=== PATIENT | female | born 1965 | race Caucasian/White ===

== ENCOUNTER 2020-05-14 23:29 | Inpatient (IN) | payer BC ==
[~2020-05-14] VITALS: Ht 154.9 cm; Wt 100.8 kg
[2020-05-15] MEDS ORDERED: ACETAMINOPHEN 325 MG TABLET. PO ONE (00:30)
[2020-05-15] MEDS ORDERED: IV NORMAL SALINE 1000ML BAG 1,000 ML IV ONE ×2 (00:30→01:30)
[2020-05-15 01:01] LABS: CALCIUM 9.4 mg/dL (8.5-10.1); CREATININE 1.1 mg/dL (0.6-1.0); GFR 51.4; POTASSIUM 3.6 mmol/L (3.5-5.1)
[2020-05-15 01:02] LABS: BASO % 1 % (0-3); EOS % 0 % (0-3); HEMATOCRIT 47.4 % (36.0-47.0); HEMOGLOBIN 16.1 g/dL (12.0-15.5); LYMPH # 0.8 x10^3/uL (1.0-4.8); LYMPH % 11 % (24-48); MEAN CORPUSCULAR HEMOGLOBIN 29 pg (25-35); MEAN CORPUSCULAR HGB CONC 34 g/dL (31-37); MEAN CORPUSCULAR VOLUME 86 fL (79-100); MONO # 0.8 x10^3/uL (0.0-1.1); MONO % 11 % (0-9); NEUT # 5.8 x10^3/uL (1.8-7.7); NEUT % 78 % (31-73); PLATELET COUNT 218 x10^3/uL (140-400); RED CELL DISTRIBUTION WIDTH 13.6 % (11.5-14.5); WHITE BLOOD COUNT 7.5 x10^3/uL (4.0-11.0)
[2020-05-15 01:07] LABS: ALBUMIN 3.2 g/dL (3.4-5.0); ALBUMIN/GLOBULIN RATIO 0.6 (1.0-1.7); TOTAL BILIRUBIN 0.6 mg/dL (0.2-1.0); TOTAL PROTEIN 8.2 g/dL (6.4-8.2)
--- NOTE | 2020-05-15 01:27 | RAD ---
AP chest. HISTORY: Short of breath, Covid positive AP view was taken of the chest. Patient's taken a poor inspiration. There is no definite effusion. Heart is normal in size. There is mild crowding of the vasculature related to the poor inspiration. Minimal interstitial infiltrates are possible but the pattern may all be related to the degree of inspiration. A confluent pneumonia is not identified. IMPRESSION: 1. Mild prominence bronchovascular pattern probably related to the poor inspiration. 2. No confluent areas of infiltrate. Electronically signed by: Travon Naranjo MD (05/15/2020 1:24 AM) [id number]
--- NOTE | 2020-05-15 01:48 | PHYS DOC ---
Past Medical History Past Medical History: High Cholesterol Additional Past Medical Histor: COVID POSITIVE MAY 05/2020 Past Surgical History: No Surgical History Smoking Status: Former Smoker Alcohol Use: None General Adult EDM: Chief Complaint: FEVER HPI: HPI: 54-year-old female presents with a chief complaint of fever generalized weakness and shortness of breath. Patient tested positive for Covid approximately 10 days ago. Review of Systems: Review of Systems: Constitutional: Positive fever and chills Eyes: Denies change in visual acuity. [] HENT: Denies nasal congestion or sore throat. [] Respiratory: Positive cough and shortness of breath Cardiovascular: Denies chest pain or edema. [] GI: Positive abdominal pain : Denies dysuria. [] Musculoskeletal: Denies back pain or joint pain. [] Integument: Denies rash. [] Neurologic: Denies headache, focal weakness or sensory changes. [] Endocrine: Denies polyuria or polydipsia. [] Lymphatic: Denies swollen glands. [] Psychiatric: Denies depression or anxiety. [] Heart Score: Risk Factors: Risk Factors: DM, Current or recent (<one month) smoker, HTN, HLP, family history of CAD, obesity. Risk Scores: Score 0 - 3: 2.5% MACE over next 6 weeks - Discharge Home Score 4 - 6: 20.3% MACE over next 6 weeks - Admit for Clinical Observation Score 7 - 10: 72.7% MACE over next 6 weeks - Early Invasive Strategies Current Medications: Current Medications Medications (Trade) Dose Ordered Sig/[facility] Start Time Stop Time Status Last Admin Dose Admin Acetaminophen (Tylenol) 650 mg 1X ONCE 05/15/20 00:30 05/15/20 00:31 DC 05/15/20 00:35 650 MG Sodium Chloride 1,000 ml @ 1,000 mls/hr 1X ONCE 05/15/20 01:30 05/15/20 02:29 Allergies: Allergies: Allergies Coded Allergies Type Severity Reaction Last Updated Verified No Known Drug Allergies 05/15/20 No Physical Exam: PE: Constitutional: Well developed, well nourished, no acute distress, non-toxic appearance. [] HENT: Normocephalic, atraumatic, bilateral external ears normal, oropharynx moist, no oral exudates, nose normal. [] Eyes: PERRLA, EOMI, conjunctiva normal, no discharge. [] Neck: Normal range of motion, no tenderness, supple, no stridor. [] Cardiovascular:Heart rate regular rhythm, no murmur [] Lungs & Thorax: Bilateral breath sounds clear to auscultation [] Abdomen: Bowel sounds normal, soft, no tenderness, no masses, no pulsatile masses. [] Skin: Warm, dry, no erythema, no rash. [] Back: No tenderness, no CVA tenderness. [] Extremities: No tenderness, no cyanosis, no clubbing, ROM intact, no edema. [] Neurologic: Alert and oriented X 3, normal motor function, normal sensory function, no focal deficits noted. [] Psychologic: Affect normal, judgement normal, mood normal. [] Current Patient Data: Labs: Laboratory Tests Test 05/15/20 00:40 White Blood Count 7.5 x10^3/uL (4.0-11.0) Red Blood Count 5.50 x10^6/uL (3.50-5.40) H Hemoglobin 16.1 g/dL (12.0-15.5) H Hematocrit 47.4 % (36.0-47.0) H Mean Corpuscular Volume 86 fL (79-100) Mean Corpuscular Hemoglobin 29 pg (25-35) Mean Corpuscular Hemoglobin Concent 34 g/dL (31-37) Red Cell Distribution Width 13.6 % (11.5-14.5) Platelet Count 218 x10^3/uL (140-400) Neutrophils (%) (Auto) 78 % (31-73) H Lymphocytes (%) (Auto) 11 % (24-48) L Monocytes (%) (Auto) 11 % (0-9) H Eosinophils (%) (Auto) 0 % (0-3) Basophils (%) (Auto) 1 % (0-3) Neutrophils # (Auto) 5.8 x10^3/uL (1.8-7.7) Lymphocytes # (Auto) 0.8 x10^3/uL (1.0-4.8) L Monocytes # (Auto) 0.8 x10^3/uL (0.0-1.1) Eosinophils # (Auto) 0.0 x10^3/uL (0.0-0.7) Basophils # (Auto) 0.0 x10^3/uL (0.0-0.2) Sodium Level 140 mmol/L (136-145) Potassium Level 3.6 mmol/L (3.5-5.1) Chloride Level 103 mmol/L (98-107) Carbon Dioxide Level 26 mmol/L (21-32) Anion Gap 11 (6-14) Blood Urea Nitrogen 46 mg/dL (7-20) H Creatinine 1.1 mg/dL (0.6-1.0) H Estimated GFR (Cockcroft-Gault) 51.4 BUN/Creatinine Ratio 42 (6-20) H Glucose Level 155 mg/dL (70-99) H Calcium Level 9.4 mg/dL (8.5-10.1) Total Bilirubin 0.6 mg/dL (0.2-1.0) Aspartate Amino Transferase (AST) 30 U/L (15-37) Alanine Aminotransferase (ALT) 44 U/L (14-59) Alkaline Phosphatase 59 U/L (46-116) Total Protein 8.2 g/dL (6.4-8.2) Albumin 3.2 g/dL (3.4-5.0) L Albumin/Globulin Ratio 0.6 (1.0-1.7) L Laboratory Tests 05/15/20 00:40 Laboratory Tests 05/15/20 00:40 Vital Signs: Vital Signs Date Time Temp Pulse Resp B/P (MAP) Pulse Ox O2 Delivery O2 Flow Rate FiO2 05/15/20 00:00 100.1 96 22 138/67 (90) 91 2.0 100.1 EKG: EKG: [] Radiology/Procedures: Radiology/Procedures: [] Course & Med Decision Making: Course & Med Decision Making Pertinent Labs and Imaging studies reviewed. (See chart for details) [] Patient is oxygen saturations on room air upper 80s to low 90s. Patient's oxygen saturation saturation 91% on 2L. Treatment included 2L NS, decadron zithromax and rocephin. Dragon Disclaimer: Dragon Disclaimer: This electronic medical record was generated, in whole or in part, using a voice recognition dictation system. Departure Departure Impression: Primary Impression: Person under investigation for COVID-19 Additional Impressions: Fever Dehydration Disposition: 09 ADMITTED INPT THIS HOSP Admitting Physician: BG Condition: STABLE Referrals: NO PCP (PCP) ZULMA MACIEL DO May 15, 2020 01:48
[2020-05-15] MEDS ORDERED: ONDANSETRON PF 4 MG/2 ML VIAL. IV PRN (03:45)
[2020-05-15] MEDS ORDERED: ACETAMINOPHEN 325 MG TABLET. PO PRN (03:45)
[2020-05-15] MEDS ORDERED: AZITHRMYCN 500MG IVPB FOR OMNI 250 ML IV ONE (04:00)
[2020-05-15] MEDS ORDERED: DEXAMETHASONE SOD PHOS 4 MG/ML VIAL IVP ONE (04:30)
[2020-05-15] MEDS ORDERED: cefTRIAXone IV Push 1 GM VIAL. IVP ONE (04:30)
[2020-05-15 07:00] VITALS: BP 120/62
[2020-05-15 11:00] VITALS: BP 127/71
--- NOTE | 2020-05-15 13:54 | PDOC1 ---
History and Physical Date of Admission Date of Admission DATE: 05/15/20 TIME: 13:54 Identification/Chief Complaint Chief Complaint Shortness of breath Source Source: Patient History of Present Illness History of Present Illness Patient is a 54-year-old female with past medical history of hyperlipidemia, obesity, who presents with worsening shortness of breath over the past 10 days. Patient states that 10 days ago she tested positive for COVID-19. Since that time she notes associated fever, body aches, nausea, vomiting, and headache. Upon arrival in the ER, she became hypoxic and required 2 L of oxygen. Patient states she is normally pretty healthy and does not take any medications except for [id number] vitamin supplements. She denies any diarrhea or chest pain. Past Medical History Past Medical History HLD Past Surgical History Past Surgical History: No pertinent history Family History Family History CAD, cancer Social History Smoke: Quit ALCOHOL: none Drugs: None Current Problem List Problem List Problems Medical Problems: (1) Dehydration Status: Acute (2) Epigastric pain Status: Acute (3) Fever Status: Acute (4) Gastric ulcer Status: Acute (5) Person under investigation for COVID-19 Status: Acute Current Medications Current Medications Current Medications Acetaminophen (Tylenol) 650 mg 1X ONCE PO Last administered on 05/15/20at 00:35; Start 05/15/20 at 00:30; Stop 05/15/20 at 00:31; Status DC Sodium Chloride 1,000 ml @ 1,000 mls/hr 1X ONCE IV Last administered on 05/15at 00:47; Start 05/15/20 at 00:30; Stop 05/15/20 at 01:29; Status DC Sodium Chloride 1,000 ml @ 1,000 mls/hr 1X ONCE IV Last administered on 05/15/20at 01:46; Start 05/15/20 at 01:30; Stop 05/15/20 at 02:29; Status DC Ondansetron HCl (Zofran) 4 mg PRN Q8HRS PRN IV NAUSEA/VOMITING Last administered on 05/15/20at 05:13; Start 05/15/20 at 03:45; Stop 05/16/20 at 03:44 Acetaminophen (Tylenol) 650 mg PRN Q4HRS PRN PO FEVER > 100.3'F; Start 05/15/20 at 03:45; Stop 05/16/20 at 03:44 Dexamethasone Sodium Phosphate (Decadron) 4 mg 1X ONCE IVP Last administered on 05/15/20at 05:11; Start 05/15/20 at 04:30; Stop 05/15/20 at 04:31; Status DC Ceftriaxone Sodium (Rocephin) 1 gm 1X ONCE IVP Last administered on 05/15/20at 05:06; Start 05/15/20 at 04:30; Stop 05/15/20 at 04:31; Status DC Azithromycin 250 ml @ 250 mls/hr 1X ONCE IV Last administered on 05/15/20at 05:16; Start 05/15/20 at 04:00; Stop 05/15/20 at 04:59; Status DC Allergies Allergies: Coded Allergies: No Known Drug Allergies (Unverified , 05/15/20) ROS Review of System GENERAL: Fevers, chills. SKIN: No bruising, hair changes or rashes. EYES: No blurred, double or loss of vision. NOSE AND THROAT: No history of nosebleeds, hoarseness or sore throat. HEART: Denies chest pain, denies palpitations. LUNGS: Denies cough, hemoptysis, wheezing or shortness of breath. GASTROINTESTINAL: Nausea, vomiting. Denies diarrhea. GENITOURINARY: Denies dysuria, frequency, urgency, hematuria. NEUROLOGIC: Headache. Denies history of numbness, tingling, tremor or weakness. PSYCHIATRIC: Denies anxiety, denies depression. ENDOCRINE: No history of heat or cold intolerance, polyuria or polydipsia. EXTREMITIES: Muscle aches. Denies muscle weakness, joint pain, pain on walking or stiffness. Physical Exam Physical Exam General: Alert, Oriented X3, Cooperative. No acute distress HEENT: PERRLA, EOMI Lungs: Clear to auscultation, Normal air movement Heart: RRR, no murmurs Cardiovascular: S1, S2 Abdomen: Obese. Normal bowel sounds, Soft, No tenderness Extremities: No clubbing, No cyanosis Skin: No rashes, No significant lesion Neuro: Normal speech, Normal tone, Sensation intact Psych/Mental Status: Mental status NL, Mood NL Vitals Vitals Vital Signs Date Time Temp Pulse Resp B/P (MAP) Pulse Ox O2 Delivery O2 Flow Rate FiO2 05/15/20 11:00 96.5 74 19 127/71 (89) 93 Nasal Cannula 2.0 96.5 Labs Labs Laboratory Tests Test 05/15/20 00:40 White Blood Count 7.5 x10^3/uL (4.0-11.0) Red Blood Count 5.50 x10^6/uL (3.50-5.40) Hemoglobin 16.1 g/dL (12.0-15.5) Hematocrit 47.4 % (36.0-47.0) Mean Corpuscular Volume 86 fL (79-100) Mean Corpuscular Hemoglobin 29 pg (25-35) Mean Corpuscular Hemoglobin Concent 34 g/dL (31-37) Red Cell Distribution Width 13.6 % (11.5-14.5) Platelet Count 218 x10^3/uL (140-400) Neutrophils (%) (Auto) 78 % (31-73) Lymphocytes (%) (Auto) 11 % (24-48) Monocytes (%) (Auto) 11 % (0-9) Eosinophils (%) (Auto) 0 % (0-3) Basophils (%) (Auto) 1 % (0-3) Neutrophils # (Auto) 5.8 x10^3/uL (1.8-7.7) Lymphocytes # (Auto) 0.8 x10^3/uL (1.0-4.8) Monocytes # (Auto) 0.8 x10^3/uL (0.0-1.1) Eosinophils # (Auto) 0.0 x10^3/uL (0.0-0.7) Basophils # (Auto) 0.0 x10^3/uL (0.0-0.2) Sodium Level 140 mmol/L (136-145) Potassium Level 3.6 mmol/L (3.5-5.1) Chloride Level 103 mmol/L (98-107) Carbon Dioxide Level 26 mmol/L (21-32) Anion Gap 11 (6-14) Blood Urea Nitrogen 46 mg/dL (7-20) Creatinine 1.1 mg/dL (0.6-1.0) Estimated GFR (Cockcroft-Gault) 51.4 BUN/Creatinine Ratio 42 (6-20) Glucose Level 155 mg/dL (70-99) Calcium Level 9.4 mg/dL (8.5-10.1) Total Bilirubin 0.6 mg/dL (0.2-1.0) Aspartate Amino Transf (AST/SGOT) 30 U/L (15-37) Alanine Aminotransferase (ALT/SGPT) 44 U/L (14-59) Alkaline Phosphatase 59 U/L (46-116) Total Protein 8.2 g/dL (6.4-8.2) Albumin 3.2 g/dL (3.4-5.0) Albumin/Globulin Ratio 0.6 (1.0-1.7) Laboratory Tests Test 05/15/20 00:40 White Blood Count 7.5 x10^3/uL (4.0-11.0) Red Blood Count 5.50 x10^6/uL (3.50-5.40) Hemoglobin 16.1 g/dL (12.0-15.5) Hematocrit 47.4 % (36.0-47.0) Mean Corpuscular Volume 86 fL (79-100) Mean Corpuscular Hemoglobin 29 pg (25-35) Mean Corpuscular Hemoglobin Concent 34 g/dL (31-37) Red Cell Distribution Width 13.6 % (11.5-14.5) Platelet Count 218 x10^3/uL (140-400) Neutrophils (%) (Auto) 78 % (31-73) Lymphocytes (%) (Auto) 11 % (24-48) Monocytes (%) (Auto) 11 % (0-9) Eosinophils (%) (Auto) 0 % (0-3) Basophils (%) (Auto) 1 % (0-3) Neutrophils # (Auto) 5.8 x10^3/uL (1.8-7.7) Lymphocytes # (Auto) 0.8 x10^3/uL (1.0-4.8) Monocytes # (Auto) 0.8 x10^3/uL (0.0-1.1) Eosinophils # (Auto) 0.0 x10^3/uL (0.0-0.7) Basophils # (Auto) 0.0 x10^3/uL (0.0-0.2) Sodium Level 140 mmol/L (136-145) Potassium Level 3.6 mmol/L (3.5-5.1) Chloride Level 103 mmol/L (98-107) Carbon Dioxide Level 26 mmol/L (21-32) Anion Gap 11 (6-14) Blood Urea Nitrogen 46 mg/dL (7-20) Creatinine 1.1 mg/dL (0.6-1.0) Estimated GFR (Cockcroft-Gault) 51.4 BUN/Creatinine Ratio 42 (6-20) Glucose Level 155 mg/dL (70-99) Calcium Level 9.4 mg/dL (8.5-10.1) Total Bilirubin 0.6 mg/dL (0.2-1.0) Aspartate Amino Transf (AST/SGOT) 30 U/L (15-37) Alanine Aminotransferase (ALT/SGPT) 44 U/L (14-59) Alkaline Phosphatase 59 U/L (46-116) Total Protein 8.2 g/dL (6.4-8.2) Albumin 3.2 g/dL (3.4-5.0) Albumin/Globulin Ratio 0.6 (1.0-1.7) Images Images AP chest. HISTORY: Short of breath, Covid positive AP view was taken of the chest. Patient's taken a poor inspiration. There is no definite effusion. Heart is normal in size. There is mild crowding of the vasculature related to the poor inspiration. Minimal interstitial infiltrates are possible but the pattern may all be related to the degree of inspiration. A confluent pneumonia is not identified. IMPRESSION: 1. Mild prominence bronchovascular pattern probably related to the poor inspiration. 2. No confluent areas of infiltrate. VTE Prophylaxis Ordered VTE Prophylaxis Devices: No VTE Pharmacological Prophylaxi: Yes Assessment/Plan Assessment/Plan Acute hypoxic respiratory failure COVID-19 pneumonia DEBRA Vasomotor nephropathy Dehydration Plan: Patient received Rocephin and azithromycin in the ER. Continue Azithromycin 250 mg daily to complete 5-day course. Solu-Medrol 40 mg twice daily Zinc 100 mg daily, vitamin C 500 mg every 6, vitamin D3 5000 units daily Consult pulmonology for further recommendations FEN - Cardiac diet PPX - Lovenox FULL CODE Dispo - inpatient for above Justifications for Admission Other Justification TONJA WHITE MD May 15, 2020 13:54
[2020-05-15 15:14] VITALS: BP 131/61
[2020-05-15] MEDS: ASCORBIC ACID 500 MG TABLET PO SCH (17:13)
[2020-05-15] MEDS ORDERED: IBUPROFEN 400 MG TABLET. PO PRN (18:30)
[2020-05-15] MEDS ORDERED: BISACODYL 10 MG SUPP.RECT. PR PRN (18:30)
[2020-05-15] MEDS ORDERED: MAGNESIUM HYDROXIDE 2,400 MG/30 ML ORAL.SUSP. PO PRN (18:30)
[2020-05-15] MEDS: IV NORMAL SALINE 1000ML BAG 1,000 ML IV SCH (18:30)
[2020-05-15] MEDS ORDERED: traMADol 50 MG TABLET PO PRN (18:45)
[2020-05-15] MEDS ORDERED: ZOLPIDEM 5 MG TABLET. PO PRN (18:45)
[2020-05-15 20:40] VITALS: BP 136/76
[2020-05-15] MEDS: methylPREDNISolone SOD SUCC PF 40 MG/ML VIAL. IV SCH (21:09)
[2020-05-15 23:53] VITALS: BP 123/64
[2020-05-16] VITALS (8 sets, daily range): BP systolic 118–149; BP diastolic 58–75
[2020-05-16] MEDS: ASCORBIC ACID 500 MG TABLET PO SCH ×5 (00:44→23:48)
[2020-05-16] MEDS ORDERED: ACETAMINOPHEN 325 MG TABLET. PO PRN (04:00)
[2020-05-16] MEDS: IV NORMAL SALINE 1000ML BAG 1,000 ML IV SCH ×2 (04:27→14:30)
[2020-05-16 06:06] LABS: BASO % 0 % (0-3); EOS % 0 % (0-3); HEMOGLOBIN 13.6 g/dL (12.0-15.5); LYMPH # 0.5 x10^3/uL (1.0-4.8); LYMPH % 7 % (24-48); MEAN CORPUSCULAR HEMOGLOBIN 30 pg (25-35); MEAN CORPUSCULAR HGB CONC 34 g/dL (31-37); MEAN CORPUSCULAR VOLUME 87 fL (79-100); MONO # 0.3 x10^3/uL (0.0-1.1); MONO % 4 % (0-9); NEUT # 6.2 x10^3/uL (1.8-7.7); NEUT % 88 % (31-73); PLATELET COUNT 190 x10^3/uL (140-400); RED CELL DISTRIBUTION WIDTH 13.4 % (11.5-14.5)
[2020-05-16 06:23] LABS: ALBUMIN 2.6 g/dL (3.4-5.0); ALBUMIN/GLOBULIN RATIO 0.7 (1.0-1.7); CALCIUM 8.7 mg/dL (8.5-10.1); CREATININE 0.7 mg/dL (0.6-1.0); GFR 86.6; POTASSIUM 3.7 mmol/L (3.5-5.1); TOTAL BILIRUBIN 0.4 mg/dL (0.2-1.0); TOTAL PROTEIN 6.1 g/dL (6.4-8.2)
[2020-05-16 06:34] LABS: MAGNESIUM 2.7 mg/dL (1.8-2.4)
[2020-05-16] MEDS: ZINC SULFATE 220 MG CAPSULE. PO SCH (08:47)
[2020-05-16] MEDS: methylPREDNISolone SOD SUCC PF 40 MG/ML VIAL. IV SCH ×2 (08:47→20:28)
[2020-05-16] MEDS: CHOLECALCIFEROL (VITAMIN D3) 5,000 UNIT CAPSULE PO SCH (08:48)
[2020-05-16] MEDS: AZITHROMYCIN 250 MG TABLET. PO SCH (08:48)
[2020-05-16 10:17] LABS: % BANDS 6 % (0-9); % LYMPHS 7 % (24-48); % MONOS 4 % (0-10); % SEGS 83 % (35-66)
[2020-05-16 10:18] LABS: PLT ESTIMATE ADEQUATE (ADEQUATE)
--- NOTE | 2020-05-16 13:21 | PDOC ---
[facility] PROGRESS NOTE Date of Service DOS: DATE: 05/16/20 TIME: 13:19 Chief Complaint Chief Complaint Acute hypoxic respiratory failure COVID-19 pneumonia DEBRA Vasomotor nephropathy Dehydration Plan: Patient received Rocephin and azithromycin in the ER. Continue Azithromycin 250 mg daily to complete 5-day course. Solu-Medrol 40 mg twice daily Zinc 100 mg daily, vitamin C 500 mg every 6, vitamin D3 5000 units daily Consult pulmonology for further recommendations FEN - Cardiac diet PPX - Lovenox FULL CODE Dispo - inpatient for above History of Present Illness History of Present Illness 54-year-old female with past medical history of hyperlipidemia, obesity, who presents with worsening shortness of breath over the past 10 days. Patient states that 10 days ago she tested positive for COVID-19. Since that time she notes associated fever, body aches, nausea, vomiting, and headache. Upon arrival in the ER, she became hypoxic and required 2 L of oxygen. Patient states she is normally pretty healthy and does not take any medications except for [id number] vitamin supplements. She denies any diarrhea or chest pain. 05/16/2020 No acute events overnight. Patient seen and examined at bedside. Patient remains on 2 L nasal cannula saturating 94%. Minimal symptoms upon exertion. Patient's chart, labs, images were reviewed and discussed with RN Vitals/I&O Vitals/I&O: Vital Signs Date Time Temp Pulse Resp B/P (MAP) Pulse Ox O2 Delivery O2 Flow Rate FiO2 05/16/20 11:00 96.5 88 16 119/61 (80) 95 Nasal Cannula 2.0 96.5 I & O 05/15/20 05/15/20 05/16/20 15:00 23:00 07:00 Intake Total 0 ml Output Total 200 ml Balance -200 ml Physical Exam Physical Exam: GEN: No apparent distress. Alert and oriented HEENT: Normal cephalic, atraumatic, external auditory canals are patent NECK: Supple, no JVD, no thyromegaly was noted LUNGS: Bilateral clear HEART: RRR, S1, S2 present. Peripheral pulses intact, no obvious murmurs noted ABDOMEN: Soft, nontender. Positive bowel sounds, no organomegaly, normal bowel sounds EXTREMITIES: Without clubbing, cyanosis, or edema. Pedal pulses intact. Negative Homans sign Labs Labs: Laboratory Tests Test 05/16/20 04:10 05/16/20 04:40 HS-Etf-E-Type Natriuretic Peptide 276 pg/mL (0-124) White Blood Count 7.0 x10^3/uL (4.0-11.0) Red Blood Count 4.60 x10^6/uL (3.50-5.40) Hemoglobin 13.6 g/dL (12.0-15.5) Hematocrit 40.0 % (36.0-47.0) Mean Corpuscular Volume 87 fL (79-100) Mean Corpuscular Hemoglobin 30 pg (25-35) Mean Corpuscular Hemoglobin Concent 34 g/dL (31-37) Red Cell Distribution Width 13.4 % (11.5-14.5) Platelet Count 190 x10^3/uL (140-400) Neutrophils (%) (Auto) 88 % (31-73) Lymphocytes (%) (Auto) 7 % (24-48) Monocytes (%) (Auto) 4 % (0-9) Eosinophils (%) (Auto) 0 % (0-3) Basophils (%) (Auto) 0 % (0-3) Neutrophils # (Auto) 6.2 x10^3/uL (1.8-7.7) Lymphocytes # (Auto) 0.5 x10^3/uL (1.0-4.8) Monocytes # (Auto) 0.3 x10^3/uL (0.0-1.1) Eosinophils # (Auto) 0.0 x10^3/uL (0.0-0.7) Basophils # (Auto) 0.0 x10^3/uL (0.0-0.2) Segmented Neutrophils % 83 % (35-66) Band Neutrophils % 6 % (0-9) Lymphocytes % 7 % (24-48) Monocytes % 4 % (0-10) Platelet Estimate Adequate (ADEQUATE) D-Dimer (Sushila) 0.62 ug/mlFEU (0.00-0.50) Sodium Level 145 mmol/L (136-145) Potassium Level 3.7 mmol/L (3.5-5.1) Chloride Level 110 mmol/L (98-107) Carbon Dioxide Level 24 mmol/L (21-32) Anion Gap 11 (6-14) Blood Urea Nitrogen 25 mg/dL (7-20) Creatinine 0.7 mg/dL (0.6-1.0) Estimated GFR (Cockcroft-Gault) 86.6 BUN/Creatinine Ratio 36 (6-20) Glucose Level 166 mg/dL (70-99) Calcium Level 8.7 mg/dL (8.5-10.1) Magnesium Level 2.7 mg/dL (1.8-2.4) Ferritin 614 ng/mL (8-252) Total Bilirubin 0.4 mg/dL (0.2-1.0) Aspartate Amino Transf (AST/SGOT) 24 U/L (15-37) Alanine Aminotransferase (ALT/SGPT) 40 U/L (14-59) Alkaline Phosphatase 51 U/L (46-116) Lactate Dehydrogenase 309 U/L (81-234) Creatine Kinase 51 U/L (26-192) Total Protein 6.1 g/dL (6.4-8.2) Albumin 2.6 g/dL (3.4-5.0) Albumin/Globulin Ratio 0.7 (1.0-1.7) Assessment and Plan Assessmemt and Plan Problems Medical Problems: (1) Dehydration Status: Acute (2) Epigastric pain Status: Acute (3) Fever Status: Acute (4) Gastric ulcer Status: Acute (5) Person under investigation for COVID-19 Status: Acute Comment Review of Relevant I have reviewed the following items pradip (where applicable) has been applied. Medications: Current Medications Medications (Trade) Dose Ordered Sig/[facility]ago Route PRN Reason Start Time Stop Time Status Last Admin Dose Admin Methylprednisolone Sodium Succinate (SOLU-Medrol 40MG VIAL) 40 mg BID IV 05/15/20 21:00 05/16/20 08:47 Zinc Sulfate (Orazinc) 220 mg DAILY PO 05/16/20 09:00 05/16/20 08:47 Ascorbic Acid (Vitamin C) 500 mg Q6HRS PO 05/15/20 18:00 05/16/20 08:47 Vitamin D (Vitamin D3) 5,000 unit DAILY PO 05/16/20 09:00 05/16/20 08:48 Enoxaparin Sodium (Lovenox 60mg Syringe) 60 mg DAILY SQ 05/16/20 09:00 05/16/20 08:47 Azithromycin (Zithromax) 250 mg DAILY PO 05/16/20 09:00 05/19/20 08:59 05/16/20 08:48 Sodium Chloride 1,000 ml @ 100 mls/hr Q10H IV 05/15/20 18:30 05/16/20 04:27 Justifications for Admission Other Justification Acute respiratory failure with hypoxia, COVID-19 pneumonia SAKINA MUJICA MD May 16, 2020 13:21
--- NOTE | 2020-05-16 13:23 | PDOC ---
PULMONARY PROGRESS NOTES DATE: 05/16/20 TIME: 13:22 Vitals Vital Signs Date Time Temp Pulse Resp B/P (MAP) Pulse Ox O2 Delivery O2 Flow Rate FiO2 05/16/20 11:00 96.5 88 16 119/61 (80) 95 Nasal Cannula 2.0 96.5 Labs Laboratory Tests Test 05/15/20 00:40 05/15/20 05:23 05/16/20 04:10 05/16/20 04:40 White Blood Count 7.5 x10^3/uL (4.0-11.0) 7.0 x10^3/uL (4.0-11.0) Red Blood Count 5.50 x10^6/uL (3.50-5.40) 4.60 x10^6/uL (3.50-5.40) Hemoglobin 16.1 g/dL (12.0-15.5) 13.6 g/dL (12.0-15.5) Hematocrit 47.4 % (36.0-47.0) 40.0 % (36.0-47.0) Mean Corpuscular Volume 86 fL (79-100) 87 fL (79-100) Mean Corpuscular Hemoglobin 29 pg (25-35) 30 pg (25-35) Mean Corpuscular Hemoglobin Concent 34 g/dL (31-37) 34 g/dL (31-37) Red Cell Distribution Width 13.6 % (11.5-14.5) 13.4 % (11.5-14.5) Platelet Count 218 x10^3/uL (140-400) 190 x10^3/uL (140-400) Neutrophils (%) (Auto) 78 % (31-73) 88 % (31-73) Lymphocytes (%) (Auto) 11 % (24-48) 7 % (24-48) Monocytes (%) (Auto) 11 % (0-9) 4 % (0-9) Eosinophils (%) (Auto) 0 % (0-3) 0 % (0-3) Basophils (%) (Auto) 1 % (0-3) 0 % (0-3) Neutrophils # (Auto) 5.8 x10^3/uL (1.8-7.7) 6.2 x10^3/uL (1.8-7.7) Lymphocytes # (Auto) 0.8 x10^3/uL (1.0-4.8) 0.5 x10^3/uL (1.0-4.8) Monocytes # (Auto) 0.8 x10^3/uL (0.0-1.1) 0.3 x10^3/uL (0.0-1.1) Eosinophils # (Auto) 0.0 x10^3/uL (0.0-0.7) 0.0 x10^3/uL (0.0-0.7) Basophils # (Auto) 0.0 x10^3/uL (0.0-0.2) 0.0 x10^3/uL (0.0-0.2) Sodium Level 140 mmol/L (136-145) 145 mmol/L (136-145) Potassium Level 3.6 mmol/L (3.5-5.1) 3.7 mmol/L (3.5-5.1) Chloride Level 103 mmol/L (98-107) 110 mmol/L (98-107) Carbon Dioxide Level 26 mmol/L (21-32) 24 mmol/L (21-32) Anion Gap 11 (6-14) 11 (6-14) Blood Urea Nitrogen 46 mg/dL (7-20) 25 mg/dL (7-20) Creatinine 1.1 mg/dL (0.6-1.0) 0.7 mg/dL (0.6-1.0) Estimated GFR (Cockcroft-Gault) 51.4 86.6 BUN/Creatinine Ratio 42 (6-20) 36 (6-20) Glucose Level 155 mg/dL (70-99) 166 mg/dL (70-99) Calcium Level 9.4 mg/dL (8.5-10.1) 8.7 mg/dL (8.5-10.1) Total Bilirubin 0.6 mg/dL (0.2-1.0) 0.4 mg/dL (0.2-1.0) Aspartate Amino Transf (AST/SGOT) 30 U/L (15-37) 24 U/L (15-37) Alanine Aminotransferase (ALT/SGPT) 44 U/L (14-59) 40 U/L (14-59) Alkaline Phosphatase 59 U/L (46-116) 51 U/L (46-116) Total Protein 8.2 g/dL (6.4-8.2) 6.1 g/dL (6.4-8.2) Albumin 3.2 g/dL (3.4-5.0) 2.6 g/dL (3.4-5.0) Albumin/Globulin Ratio 0.6 (1.0-1.7) 0.7 (1.0-1.7) Coronavirus (PCR) Detected (Not Detected) AR-Dpu-I-Type Natriuretic Peptide 276 pg/mL (0-124) Segmented Neutrophils % 83 % (35-66) Band Neutrophils % 6 % (0-9) Lymphocytes % 7 % (24-48) Monocytes % 4 % (0-10) Platelet Estimate Adequate (ADEQUATE) D-Dimer (Sushila) 0.62 ug/mlFEU (0.00-0.50) Magnesium Level 2.7 mg/dL (1.8-2.4) Ferritin 614 ng/mL (8-252) Lactate Dehydrogenase 309 U/L (81-234) Creatine Kinase 51 U/L (26-192) Laboratory Tests Test 05/16/20 04:10 05/16/20 04:40 FF-Ttv-M-Type Natriuretic Peptide 276 pg/mL (0-124) White Blood Count 7.0 x10^3/uL (4.0-11.0) Red Blood Count 4.60 x10^6/uL (3.50-5.40) Hemoglobin 13.6 g/dL (12.0-15.5) Hematocrit 40.0 % (36.0-47.0) Mean Corpuscular Volume 87 fL (79-100) Mean Corpuscular Hemoglobin 30 pg (25-35) Mean Corpuscular Hemoglobin Concent 34 g/dL (31-37) Red Cell Distribution Width 13.4 % (11.5-14.5) Platelet Count 190 x10^3/uL (140-400) Neutrophils (%) (Auto) 88 % (31-73) Lymphocytes (%) (Auto) 7 % (24-48) Monocytes (%) (Auto) 4 % (0-9) Eosinophils (%) (Auto) 0 % (0-3) Basophils (%) (Auto) 0 % (0-3) Neutrophils # (Auto) 6.2 x10^3/uL (1.8-7.7) Lymphocytes # (Auto) 0.5 x10^3/uL (1.0-4.8) Monocytes # (Auto) 0.3 x10^3/uL (0.0-1.1) Eosinophils # (Auto) 0.0 x10^3/uL (0.0-0.7) Basophils # (Auto) 0.0 x10^3/uL (0.0-0.2) Segmented Neutrophils % 83 % (35-66) Band Neutrophils % 6 % (0-9) Lymphocytes % 7 % (24-48) Monocytes % 4 % (0-10) Platelet Estimate Adequate (ADEQUATE) D-Dimer (Sushila) 0.62 ug/mlFEU (0.00-0.50) Sodium Level 145 mmol/L (136-145) Potassium Level 3.7 mmol/L (3.5-5.1) Chloride Level 110 mmol/L (98-107) Carbon Dioxide Level 24 mmol/L (21-32) Anion Gap 11 (6-14) Blood Urea Nitrogen 25 mg/dL (7-20) Creatinine 0.7 mg/dL (0.6-1.0) Estimated GFR (Cockcroft-Gault) 86.6 BUN/Creatinine Ratio 36 (6-20) Glucose Level 166 mg/dL (70-99) Calcium Level 8.7 mg/dL (8.5-10.1) Magnesium Level 2.7 mg/dL (1.8-2.4) Ferritin 614 ng/mL (8-252) Total Bilirubin 0.4 mg/dL (0.2-1.0) Aspartate Amino Transf (AST/SGOT) 24 U/L (15-37) Alanine Aminotransferase (ALT/SGPT) 40 U/L (14-59) Alkaline Phosphatase 51 U/L (46-116) Lactate Dehydrogenase 309 U/L (81-234) Creatine Kinase 51 U/L (26-192) Total Protein 6.1 g/dL (6.4-8.2) Albumin 2.6 g/dL (3.4-5.0) Albumin/Globulin Ratio 0.7 (1.0-1.7) Impression . Full note dictated Acute hypoxemic respiratory failure secondary to COVID-19 viral pneumonia MIMI GRIMALDO MD May 16, 2020 13:23
--- NOTE | 2020-05-16 13:39 | CONS ---
DATE OF CONSULTATION: 05/16/2020 ATTENDING PHYSICIAN: Dr. Lua. REASON FOR CONSULTATION: The patient is seen in pulmonary consultation at the request of Dr. Lua for acute hypoxemic respiratory failure. HISTORY OF PRESENT ILLNESS: The patient is a 54-year-old that works at [employer]. She tested positive on 05/04/2020. She became more short of breath over the last several days, also had associated fevers, body aches, nausea, vomiting, headache. She presented to the Emergency Room, she was admitted. I was asked to see her in consultation. She had a chest x-ray, which revealed some mild increased lung markings. PAST MEDICAL HISTORY: Otherwise remarkable for hyperlipidemia. PAST SURGICAL HISTORY: None. FAMILY HISTORY: Cancer. SOCIAL HISTORY: She quit tobacco several years ago. Denies any alcohol intake. REVIEW OF SYSTEMS: CONSTITUTIONAL: Subjective fever. EYES: No change in visual acuity. HEENT: As indicated above. PULMONARY: As indicated above. CARDIOVASCULAR: No chest pain. No pressure. GASTROINTESTINAL: No nausea, vomiting, diarrhea. GENITOURINARY: No dysuria or frequency. MUSCULOSKELETAL: No localized muscle aches or joint pains. SKIN: No new skin rashes. NEUROLOGIC: No headaches, diplopia or blurred vision. PHYSICAL EXAMINATION: GENERAL: The patient was in no respiratory distress. VITAL SIGNS: Stable. O2 saturation was greater than 92%. Last T-max was 3 days ago of 100.1. HEENT: Eyes, the sclerae were nonicteric. NECK: Jugular venous distention could not be assessed secondary to body habitus. CHEST: Full expansion. LUNGS: Adequate flow with no wheezes. CARDIOVASCULAR: Regular rate and rhythm with S1, S2, no S3. ABDOMEN: Soft, obese. EXTREMITIES: No clubbing, cyanosis. Minimal edema. LABORATORY DATA: Reviewed. D-dimer was 0.62. White count was normal. Hemoglobin and hematocrit 16 and 47. PCR was positive. Elevated BUN and creatinine. IMPRESSION: 1. Acute hypoxemic respiratory failure. 2. COVID-19 viral pneumonia. 3. Morbid obesity. 4. Hyperlipidemia. 5. Elevated D-dimer. 6. Acute kidney injury. 7. Protein malnutrition, present upon admission. PLAN: Justification for inpatient admission includes patient is progressing to respiratory failure after tested positive on 05/04/2020. She presents with increasing symptoms of nausea, vomiting, headache, body aches and shortness of breath requiring 2 liters of oxygen supplementation. She continues to have a fever. In addition, markers of inflammation are increased. PLAN: 1. The patient will continue support with oxygen supplementation. 2. Steroids. 3. Continue empiric antibiotics for possible bacterial pneumonia. 4. We will hold off on remdesivir considering the patient tested positive 12 days ago. 5. Administer convalescent serum. MIMI GRIMALDO MD DR: RANCHO/nts JOB#: [id number] / [id number]
--- NOTE | 2020-05-16 16:18 | NUR ---
SW following. Spoke with RN and reviewed chart. Pt from home. Pt works at [employer]. Pt currently on 2l 02, IV solu-medrol, cardiac diet, COVID positive. SW available to assist with discharge planning.
[2020-05-16] MEDS: LACTOBACILLUS RHAMNOSUS GG 1 CAPSULE. PO SCH (20:27)
[2020-05-17] VITALS (9 sets, daily range): BP systolic 105–188; BP diastolic 60–85
[2020-05-17] MEDS: IV NORMAL SALINE 1000ML BAG 1,000 ML IV SCH ×2 (05:57→10:30)
[2020-05-17] MEDS: ASCORBIC ACID 500 MG TABLET PO SCH ×4 (05:57→22:42)
[2020-05-17 06:29] LABS: BASO % 0 % (0-3); CALCIUM 9.2 mg/dL (8.5-10.1); CREATININE 0.6 mg/dL (0.6-1.0); EOS % 0 % (0-3); GFR 103.4; HEMATOCRIT 42.6 % (36.0-47.0); HEMOGLOBIN 14.1 g/dL (12.0-15.5); LYMPH # 0.7 x10^3/uL (1.0-4.8); LYMPH % 12 % (24-48); MEAN CORPUSCULAR HEMOGLOBIN 29 pg (25-35); MEAN CORPUSCULAR HGB CONC 33 g/dL (31-37); MEAN CORPUSCULAR VOLUME 88 fL (79-100); MONO # 0.3 x10^3/uL (0.0-1.1); MONO % 6 % (0-9); NEUT # 4.7 x10^3/uL (1.8-7.7); NEUT % 82 % (31-73); PLATELET COUNT 222 x10^3/uL (140-400); POTASSIUM 3.9 mmol/L (3.5-5.1); RED BLOOD COUNT 4.87 x10^6/uL (3.50-5.40); RED CELL DISTRIBUTION WIDTH 13.7 % (11.5-14.5); WHITE BLOOD COUNT 5.7 x10^3/uL (4.0-11.0)
--- NOTE | 2020-05-17 08:42 | PDOC ---
PULMONARY PROGRESS NOTES DATE: 05/17/20 TIME: 08:41 Subjective Patient feels better today not more short of air Vitals Vital Signs Date Time Temp Pulse Resp B/P (MAP) Pulse Ox O2 Delivery O2 Flow Rate FiO2 05/17/20 07:00 97.4 57 18 188/83 (118) 92 97.4 05/17/20 02:39 Nasal Cannula 2.0 Comments Patient seen doing the pandemic, visual or exam revealed no significant distress, no paroxysmal breathing pattern no increasing edema Labs Laboratory Tests Test 05/16/20 04:10 05/16/20 04:40 05/17/20 05:58 RE-Xlj-D-Type Natriuretic Peptide 276 pg/mL (0-124) White Blood Count 7.0 x10^3/uL (4.0-11.0) 5.7 x10^3/uL (4.0-11.0) Red Blood Count 4.60 x10^6/uL (3.50-5.40) 4.87 x10^6/uL (3.50-5.40) Hemoglobin 13.6 g/dL (12.0-15.5) 14.1 g/dL (12.0-15.5) Hematocrit 40.0 % (36.0-47.0) 42.6 % (36.0-47.0) Mean Corpuscular Volume 87 fL (79-100) 88 fL (79-100) Mean Corpuscular Hemoglobin 30 pg (25-35) 29 pg (25-35) Mean Corpuscular Hemoglobin Concent 34 g/dL (31-37) 33 g/dL (31-37) Red Cell Distribution Width 13.4 % (11.5-14.5) 13.7 % (11.5-14.5) Platelet Count 190 x10^3/uL (140-400) 222 x10^3/uL (140-400) Neutrophils (%) (Auto) 88 % (31-73) 82 % (31-73) Lymphocytes (%) (Auto) 7 % (24-48) 12 % (24-48) Monocytes (%) (Auto) 4 % (0-9) 6 % (0-9) Eosinophils (%) (Auto) 0 % (0-3) 0 % (0-3) Basophils (%) (Auto) 0 % (0-3) 0 % (0-3) Neutrophils # (Auto) 6.2 x10^3/uL (1.8-7.7) 4.7 x10^3/uL (1.8-7.7) Lymphocytes # (Auto) 0.5 x10^3/uL (1.0-4.8) 0.7 x10^3/uL (1.0-4.8) Monocytes # (Auto) 0.3 x10^3/uL (0.0-1.1) 0.3 x10^3/uL (0.0-1.1) Eosinophils # (Auto) 0.0 x10^3/uL (0.0-0.7) 0.0 x10^3/uL (0.0-0.7) Basophils # (Auto) 0.0 x10^3/uL (0.0-0.2) 0.0 x10^3/uL (0.0-0.2) Segmented Neutrophils % 83 % (35-66) Band Neutrophils % 6 % (0-9) Lymphocytes % 7 % (24-48) Monocytes % 4 % (0-10) Platelet Estimate Adequate (ADEQUATE) D-Dimer (Sushila) 0.62 ug/mlFEU (0.00-0.50) Sodium Level 145 mmol/L (136-145) 145 mmol/L (136-145) Potassium Level 3.7 mmol/L (3.5-5.1) 3.9 mmol/L (3.5-5.1) Chloride Level 110 mmol/L (98-107) 111 mmol/L (98-107) Carbon Dioxide Level 24 mmol/L (21-32) 23 mmol/L (21-32) Anion Gap 11 (6-14) 11 (6-14) Blood Urea Nitrogen 25 mg/dL (7-20) 23 mg/dL (7-20) Creatinine 0.7 mg/dL (0.6-1.0) 0.6 mg/dL (0.6-1.0) Estimated GFR (Cockcroft-Gault) 86.6 103.4 BUN/Creatinine Ratio 36 (6-20) Glucose Level 166 mg/dL (70-99) 167 mg/dL (70-99) Calcium Level 8.7 mg/dL (8.5-10.1) 9.2 mg/dL (8.5-10.1) Magnesium Level 2.7 mg/dL (1.8-2.4) Ferritin 614 ng/mL (8-252) Total Bilirubin 0.4 mg/dL (0.2-1.0) Aspartate Amino Transf (AST/SGOT) 24 U/L (15-37) Alanine Aminotransferase (ALT/SGPT) 40 U/L (14-59) Alkaline Phosphatase 51 U/L (46-116) Lactate Dehydrogenase 309 U/L (81-234) Creatine Kinase 51 U/L (26-192) Total Protein 6.1 g/dL (6.4-8.2) Albumin 2.6 g/dL (3.4-5.0) Albumin/Globulin Ratio 0.7 (1.0-1.7) Laboratory Tests Test 05/17/20 05:58 White Blood Count 5.7 x10^3/uL (4.0-11.0) Red Blood Count 4.87 x10^6/uL (3.50-5.40) Hemoglobin 14.1 g/dL (12.0-15.5) Hematocrit 42.6 % (36.0-47.0) Mean Corpuscular Volume 88 fL (79-100) Mean Corpuscular Hemoglobin 29 pg (25-35) Mean Corpuscular Hemoglobin Concent 33 g/dL (31-37) Red Cell Distribution Width 13.7 % (11.5-14.5) Platelet Count 222 x10^3/uL (140-400) Neutrophils (%) (Auto) 82 % (31-73) Lymphocytes (%) (Auto) 12 % (24-48) Monocytes (%) (Auto) 6 % (0-9) Eosinophils (%) (Auto) 0 % (0-3) Basophils (%) (Auto) 0 % (0-3) Neutrophils # (Auto) 4.7 x10^3/uL (1.8-7.7) Lymphocytes # (Auto) 0.7 x10^3/uL (1.0-4.8) Monocytes # (Auto) 0.3 x10^3/uL (0.0-1.1) Eosinophils # (Auto) 0.0 x10^3/uL (0.0-0.7) Basophils # (Auto) 0.0 x10^3/uL (0.0-0.2) Sodium Level 145 mmol/L (136-145) Potassium Level 3.9 mmol/L (3.5-5.1) Chloride Level 111 mmol/L (98-107) Carbon Dioxide Level 23 mmol/L (21-32) Anion Gap 11 (6-14) Blood Urea Nitrogen 23 mg/dL (7-20) Creatinine 0.6 mg/dL (0.6-1.0) Estimated GFR (Cockcroft-Gault) 103.4 Glucose Level 167 mg/dL (70-99) Calcium Level 9.2 mg/dL (8.5-10.1) Impression . IMPRESSION: 1. Acute hypoxemic respiratory failure. 2. COVID-19 viral pneumonia. 3. Morbid obesity. 4. Hyperlipidemia. 5. Elevated D-dimer. 6. Acute kidney injury. 7. Protein malnutrition, present upon admission. Plan . Continue current support, patient slowly improving 1. The patient will continue support with oxygen supplementation. 2. Steroids. 3. Continue empiric antibiotics for possible bacterial pneumonia. 4. We will hold off on remdesivir considering the patient tested positive 12 days ago. 5. Status post convalescent serum. MIMI GRIMALDO MD May 17, 2020 08:42
[2020-05-17] MEDS: AZITHROMYCIN 250 MG TABLET. PO SCH (09:30)
[2020-05-17] MEDS: LACTOBACILLUS RHAMNOSUS GG 1 CAPSULE. PO SCH ×2 (09:30→20:25)
[2020-05-17] MEDS: CHOLECALCIFEROL (VITAMIN D3) 5,000 UNIT CAPSULE PO SCH (09:32)
[2020-05-17] MEDS: ZINC SULFATE 220 MG CAPSULE. PO SCH (09:33)
[2020-05-17] MEDS ORDERED: LABETALOL 20 MG/4 ML DISP.SYRIN. IVP PRN (10:00)
[2020-05-17] MEDS ORDERED: amLODIPine BESYLATE 10 MG TABLET PO SCH (10:00)
[2020-05-17] MEDS: methylPREDNISolone SOD SUCC PF 125 MG/2 ML VIAL. IV SCH (10:07)
[2020-05-17] MEDS: amLODIPine BESYLATE 10 MG TABLET PO SCH (10:24)
--- NOTE | 2020-05-17 12:32 | PDOC ---
[facility] PROGRESS NOTE Date of Service DOS: DATE: 05/17/20 TIME: 12:30 Chief Complaint Chief Complaint Acute hypoxic respiratory failure COVID-19 pneumonia DEBRA Vasomotor nephropathy Dehydration severe protein malnutrition Plan: Patient received Rocephin and azithromycin in the ER. Continue Azithromycin 250 mg daily to complete 5-day course. Solu-Medrol 40 mg twice daily Zinc 100 mg daily, vitamin C 500 mg every 6, vitamin D3 5000 units daily Appreciate pulmonology recommendations to continue the current course as mentioned above FEN - Cardiac diet PPX - Lovenox FULL CODE Dispo - inpatient for above History of Present Illness History of Present Illness 54-year-old female with past medical history of hyperlipidemia, obesity, who presents with worsening shortness of breath over the past 10 days. Patient states that 10 days ago she tested positive for COVID-19. Since that time she notes associated fever, body aches, nausea, vomiting, and headache. Upon arrival in the ER, she became hypoxic and required 2 L of oxygen. Patient states she is normally pretty healthy and does not take any medications except for mwkr-gym-rhopmzp vitamin supplements. She denies any diarrhea or chest pain. 05/16/2020 No acute events overnight. Patient seen and examined at bedside. Patient remains on 2 L nasal cannula saturating 94%. Minimal symptoms upon exertion. Patient's chart, labs, images were reviewed and discussed with RN 05/17/2020 No acute events overnight. Patient seen and examined bedside. Patient saturating 92% on 2 L nasal cannula. Improvement in her symptoms. Follow-up Vitals/I&O Vitals/I&O: Vital Signs Date Time Temp Pulse Resp B/P (MAP) Pulse Ox O2 Delivery O2 Flow Rate FiO2 05/17/20 11:00 98.5 60 22 181/79 (113) 97 98.5 05/17/20 02:39 Nasal Cannula 2.0 I & O 05/16/20 05/16/20 05/17/20 15:00 23:00 07:00 Intake Total 118 ml 180 ml 205 ml Output Total 200 ml Balance 118 ml -20 ml 205 ml Physical Exam Physical Exam: GEN: No apparent distress. Alert and oriented HEENT: Normal cephalic, atraumatic, external auditory canals are patent NECK: Supple, no JVD, no thyromegaly was noted LUNGS: Bilateral clear HEART: RRR, S1, S2 present. Peripheral pulses intact, no obvious murmurs noted ABDOMEN: Soft, nontender. Positive bowel sounds, no organomegaly, normal bowel sounds EXTREMITIES: Without clubbing, cyanosis, or edema. Pedal pulses intact. Negative Homans sign Labs Labs: Laboratory Tests Test 05/17/20 05:58 White Blood Count 5.7 x10^3/uL (4.0-11.0) Red Blood Count 4.87 x10^6/uL (3.50-5.40) Hemoglobin 14.1 g/dL (12.0-15.5) Hematocrit 42.6 % (36.0-47.0) Mean Corpuscular Volume 88 fL (79-100) Mean Corpuscular Hemoglobin 29 pg (25-35) Mean Corpuscular Hemoglobin Concent 33 g/dL (31-37) Red Cell Distribution Width 13.7 % (11.5-14.5) Platelet Count 222 x10^3/uL (140-400) Neutrophils (%) (Auto) 82 % (31-73) Lymphocytes (%) (Auto) 12 % (24-48) Monocytes (%) (Auto) 6 % (0-9) Eosinophils (%) (Auto) 0 % (0-3) Basophils (%) (Auto) 0 % (0-3) Neutrophils # (Auto) 4.7 x10^3/uL (1.8-7.7) Lymphocytes # (Auto) 0.7 x10^3/uL (1.0-4.8) Monocytes # (Auto) 0.3 x10^3/uL (0.0-1.1) Eosinophils # (Auto) 0.0 x10^3/uL (0.0-0.7) Basophils # (Auto) 0.0 x10^3/uL (0.0-0.2) Sodium Level 145 mmol/L (136-145) Potassium Level 3.9 mmol/L (3.5-5.1) Chloride Level 111 mmol/L (98-107) Carbon Dioxide Level 23 mmol/L (21-32) Anion Gap 11 (6-14) Blood Urea Nitrogen 23 mg/dL (7-20) Creatinine 0.6 mg/dL (0.6-1.0) Estimated GFR (Cockcroft-Gault) 103.4 Glucose Level 167 mg/dL (70-99) Calcium Level 9.2 mg/dL (8.5-10.1) Assessment and Plan Assessmemt and Plan Problems Medical Problems: (1) Dehydration Status: Acute (2) Epigastric pain Status: Acute (3) Fever Status: Acute (4) Gastric ulcer Status: Acute (5) Person under investigation for COVID-19 Status: Acute Comment Review of Relevant I have reviewed the following items pradip (where applicable) has been applied. Medications: Current Medications Medications (Trade) Dose Ordered Sig/Mago Route PRN Reason Start Time Stop Time Status Last Admin Dose Admin Lactobacillus Rhamnosus (Culturelle) 1 cap BID PO 05/16/20 21:00 05/17/20 09:30 Methylprednisolone Sodium Succinate (SOLU-Medrol 125MG VIAL) 40 mg BID IV 05/17/20 09:33 05/17/20 10:07 Labetalol HCl (Normodyne Iv Push) 10 mg PRN Q2HR PRN IVP HYPERTENSION 05/17/20 10:00 05/17/20 10:07 Amlodipine Besylate (Norvasc) 10 mg DAILY PO 05/17/20 10:15 05/17/20 10:24 Justifications for Admission Other Justification Acute respiratory failure with hypoxia, COVID-19 pneumonia SAKINA MUJICA MD May 17, 2020 12:32
--- NOTE | 2020-05-17 16:24 | NUR ---
SW following. Spoke with RN and reviewed chart. Pt remains on 2l 02 and IV solu-medrol. Pt is COVID positive and will likely require a 6 min walk prior to discharge to determine home 02 needs. SW following for discharge planning.
[2020-05-18 03:00] VITALS: BP 119/59
[2020-05-18] MEDS: ASCORBIC ACID 500 MG TABLET PO SCH ×2 (05:58→11:44)
[2020-05-18 06:14] LABS: BASO % 0 % (0-3); EOS % 1 % (0-3); HEMATOCRIT 39.2 % (36.0-47.0); HEMOGLOBIN 13.1 g/dL (12.0-15.5); LYMPH # 1.8 x10^3/uL (1.0-4.8); LYMPH % 25 % (24-48); MEAN CORPUSCULAR HEMOGLOBIN 29 pg (25-35); MEAN CORPUSCULAR HGB CONC 34 g/dL (31-37); MEAN CORPUSCULAR VOLUME 87 fL (79-100); MONO # 0.6 x10^3/uL (0.0-1.1); MONO % 9 % (0-9); NEUT # 4.5 x10^3/uL (1.8-7.7); NEUT % 65 % (31-73); PLATELET COUNT 228 x10^3/uL (140-400); RED BLOOD COUNT 4.51 x10^6/uL (3.50-5.40); RED CELL DISTRIBUTION WIDTH 13.3 % (11.5-14.5)
[2020-05-18 06:40] LABS: CALCIUM 8.5 mg/dL (8.5-10.1); CREATININE 0.6 mg/dL (0.6-1.0); GFR 103.4; POTASSIUM 3.2 mmol/L (3.5-5.1)
[2020-05-18 06:55] LABS: MAGNESIUM 2.2 mg/dL (1.8-2.4)
[2020-05-18 07:00] VITALS: BP 158/89
[2020-05-18] MEDS: LACTOBACILLUS RHAMNOSUS GG 1 CAPSULE. PO SCH (08:06)
[2020-05-18] MEDS: ZINC SULFATE 220 MG CAPSULE. PO SCH (08:06)
[2020-05-18] MEDS: AZITHROMYCIN 250 MG TABLET. PO SCH (08:07)
[2020-05-18] MEDS: CHOLECALCIFEROL (VITAMIN D3) 5,000 UNIT CAPSULE PO SCH (08:07)
[2020-05-18] MEDS: amLODIPine BESYLATE 10 MG TABLET PO SCH (08:07)
[2020-05-18] MEDS: methylPREDNISolone SOD SUCC PF 125 MG/2 ML VIAL. IV SCH (08:08)
--- NOTE | 2020-05-18 08:24 | PDOC ---
PULMONARY PROGRESS NOTES DATE: 05/18/20 TIME: 08:24 Subjective Patient continue to improve afebrile on room air Vitals Vital Signs Date Time Temp Pulse Resp B/P (MAP) Pulse Ox O2 Delivery O2 Flow Rate FiO2 05/18/20 08:07 58 119/59 05/18/20 03:00 97.5 18 94 Room Air 97.5 05/17/20 23:50 2.0 Comments Patient seen doing the pandemic, visual or exam revealed no significant distress, no paroxysmal breathing pattern no increasing edema Labs Laboratory Tests Test 05/17/20 05:58 05/18/20 04:50 White Blood Count 5.7 x10^3/uL (4.0-11.0) 7.0 x10^3/uL (4.0-11.0) Red Blood Count 4.87 x10^6/uL (3.50-5.40) 4.51 x10^6/uL (3.50-5.40) Hemoglobin 14.1 g/dL (12.0-15.5) 13.1 g/dL (12.0-15.5) Hematocrit 42.6 % (36.0-47.0) 39.2 % (36.0-47.0) Mean Corpuscular Volume 88 fL (79-100) 87 fL (79-100) Mean Corpuscular Hemoglobin 29 pg (25-35) 29 pg (25-35) Mean Corpuscular Hemoglobin Concent 33 g/dL (31-37) 34 g/dL (31-37) Red Cell Distribution Width 13.7 % (11.5-14.5) 13.3 % (11.5-14.5) Platelet Count 222 x10^3/uL (140-400) 228 x10^3/uL (140-400) Neutrophils (%) (Auto) 82 % (31-73) 65 % (31-73) Lymphocytes (%) (Auto) 12 % (24-48) 25 % (24-48) Monocytes (%) (Auto) 6 % (0-9) 9 % (0-9) Eosinophils (%) (Auto) 0 % (0-3) 1 % (0-3) Basophils (%) (Auto) 0 % (0-3) 0 % (0-3) Neutrophils # (Auto) 4.7 x10^3/uL (1.8-7.7) 4.5 x10^3/uL (1.8-7.7) Lymphocytes # (Auto) 0.7 x10^3/uL (1.0-4.8) 1.8 x10^3/uL (1.0-4.8) Monocytes # (Auto) 0.3 x10^3/uL (0.0-1.1) 0.6 x10^3/uL (0.0-1.1) Eosinophils # (Auto) 0.0 x10^3/uL (0.0-0.7) 0.0 x10^3/uL (0.0-0.7) Basophils # (Auto) 0.0 x10^3/uL (0.0-0.2) 0.0 x10^3/uL (0.0-0.2) Sodium Level 145 mmol/L (136-145) 147 mmol/L (136-145) Potassium Level 3.9 mmol/L (3.5-5.1) 3.2 mmol/L (3.5-5.1) Chloride Level 111 mmol/L (98-107) 111 mmol/L (98-107) Carbon Dioxide Level 23 mmol/L (21-32) 26 mmol/L (21-32) Anion Gap 11 (6-14) 10 (6-14) Blood Urea Nitrogen 23 mg/dL (7-20) 20 mg/dL (7-20) Creatinine 0.6 mg/dL (0.6-1.0) 0.6 mg/dL (0.6-1.0) Estimated GFR (Cockcroft-Gault) 103.4 103.4 Glucose Level 167 mg/dL (70-99) 88 mg/dL (70-99) Calcium Level 9.2 mg/dL (8.5-10.1) 8.5 mg/dL (8.5-10.1) D-Dimer (Sushila) 0.59 ug/mlFEU (0.00-0.50) Magnesium Level 2.2 mg/dL (1.8-2.4) Ferritin 369 ng/mL (8-252) Lactate Dehydrogenase 284 U/L (81-234) Creatine Kinase 26 U/L (26-192) KP-Fwc-B-Type Natriuretic Peptide 877 pg/mL (0-124) Laboratory Tests Test 05/18/20 04:50 White Blood Count 7.0 x10^3/uL (4.0-11.0) Red Blood Count 4.51 x10^6/uL (3.50-5.40) Hemoglobin 13.1 g/dL (12.0-15.5) Hematocrit 39.2 % (36.0-47.0) Mean Corpuscular Volume 87 fL (79-100) Mean Corpuscular Hemoglobin 29 pg (25-35) Mean Corpuscular Hemoglobin Concent 34 g/dL (31-37) Red Cell Distribution Width 13.3 % (11.5-14.5) Platelet Count 228 x10^3/uL (140-400) Neutrophils (%) (Auto) 65 % (31-73) Lymphocytes (%) (Auto) 25 % (24-48) Monocytes (%) (Auto) 9 % (0-9) Eosinophils (%) (Auto) 1 % (0-3) Basophils (%) (Auto) 0 % (0-3) Neutrophils # (Auto) 4.5 x10^3/uL (1.8-7.7) Lymphocytes # (Auto) 1.8 x10^3/uL (1.0-4.8) Monocytes # (Auto) 0.6 x10^3/uL (0.0-1.1) Eosinophils # (Auto) 0.0 x10^3/uL (0.0-0.7) Basophils # (Auto) 0.0 x10^3/uL (0.0-0.2) D-Dimer (Sushila) 0.59 ug/mlFEU (0.00-0.50) Sodium Level 147 mmol/L (136-145) Potassium Level 3.2 mmol/L (3.5-5.1) Chloride Level 111 mmol/L (98-107) Carbon Dioxide Level 26 mmol/L (21-32) Anion Gap 10 (6-14) Blood Urea Nitrogen 20 mg/dL (7-20) Creatinine 0.6 mg/dL (0.6-1.0) Estimated GFR (Cockcroft-Gault) 103.4 Glucose Level 88 mg/dL (70-99) Calcium Level 8.5 mg/dL (8.5-10.1) Magnesium Level 2.2 mg/dL (1.8-2.4) Ferritin 369 ng/mL (8-252) Lactate Dehydrogenase 284 U/L (81-234) Creatine Kinase 26 U/L (26-192) PH-Ajr-Q-Type Natriuretic Peptide 877 pg/mL (0-124) Impression . IMPRESSION: 1. Acute hypoxemic respiratory failure. 2. COVID-19 viral pneumonia. 3. Morbid obesity. 4. Hyperlipidemia. 5. Elevated D-dimer. 6. Acute kidney injury. 7. Protein malnutrition, present upon admission. Plan . Supplemental oxygen if need , now on room air pt. to complete 6 min walk prior to D/C Change steroids to po with taper continue ABX for full course DVT/GI PPX Ok to D/C home after 6 min walk D/W MIMI PATINO MD May 18, 2020 08:24
[2020-05-18] MEDS ORDERED: amLODIPine BESYLATE 10 MG TABLET PO SCH (09:00)
[2020-05-18] MEDS ORDERED: predniSONE 20 MG TABLET PO SCH (09:00)
[2020-05-18 11:00] VITALS: BP 145/67
[2020-05-18] MEDS ORDERED: POTASSIUM CHLORIDE 20 MEQ TABLET.ER. PO ONE (11:30)
--- NOTE | 2020-05-18 11:39 | DISCH ---
DISCHARGE INSTRUCTIONS Condition on Discharge Condition on Discharge: Stable Activity After Discharge Activity Instructions for Disc: Activity as tolerated Driving Instructions after Dis: Do not drive today Weight Bearing Status after Di: No restrictions Diet after Discharge Diet after Discharge: Regular Checks after Discharge Checks after discharge: Check your Temp as needed DC Comment: CBC, CMP Follow-Up Follow up with: PCP within 2 weeks of discharge Follow Up With: Pulmonology as needed SAKINA MUJICA MD May 18, 2020 11:39
--- NOTE | 2020-05-18 14:31 | NUR ---
Patient telemonitor discontinued, no IV discharged to home with prednisone. Pt escorted out by aid to main entrance private vehicle.
[2020-05-18 15:00] VITALS: BP 138/78
--- NOTE | 2020-05-18 17:20 | NUR ---
SW following. Spoke with RN and reviewed chart. Pt on room air and does not require a 6 min walk. Pt to discharge home today, self-care. No further SW needs at this time.
--- NOTE | 2020-05-19 21:47 | PDOC3 ---
[facility]-Discharge Summary Date of Admission: Date of Admission: May 15, 2020 Date of Discharge: Date of Discharge: May 18, 2020 Admission Diagnosis: Admitting Diagnosis: Acute hypoxic respiratory failure COVID-19 pneumonia DEBRA Vasomotor nephropathy Dehydration Discharge Diagnosis: Discharge Diagnosis: Acute hypoxic respiratory failure COVID-19 pneumonia DEBRA Vasomotor nephropathy Dehydration severe protein malnutrition Consults: Consults: pulmonology Hospital Course: Hospital Course: 54-year-old female with past medical history of hyperlipidemia, obesity, who presents with worsening shortness of breath over the past 10 days. Patient states that 10 days ago she tested positive for COVID-19. Since that time she notes associated fever, body aches, nausea, vomiting, and headache. Upon arrival in the ER, she became hypoxic and required 2 L of oxygen. Patient states she is normally pretty healthy and does not take any medications except for [id number] vitamin supplements. She denies any diarrhea or chest pain. Patient admitted for further management and pulmonology evaluation. Patient was started on IV solumedrol, and IV antibiotics empirically. Patient will be discharged home with prednisone taper. Disposition: Disposition/Orders: D/C to Home Activity: Activity: Resume previous activity Diet: Diet: Regular Medications: Home Meds No Active Prescriptions or Reported Meds No Active Prescriptions or Reported Meds Total Time: Total Time: Total time spent was 35 minutes in preparing scripts, discharge planning with SW and RN, and preparing this discharge summary. Patient seen and examined on day of discharge. Justicifation of Admission Dx: Justifications for Admission: Justification of Admission Dx: Yes Respiratory Failure: Severe Resp Distress SAKINA MUJICA MD May 19, 2020 21:47
[2020-05-20] MEDS ORDERED: predniSONE 10 MG TABLET PO SCH (09:00)
[2020-05-22] MEDS ORDERED: predniSONE 20 MG TABLET PO SCH (09:00)
[2020-05-24] MEDS ORDERED: predniSONE 10 MG TABLET PO SCH (09:00)
== END 2020-05-18 14:31 | disposition home or self-care (01) | DRG 177 ==
LOC: ER 23:29 → 6 SOUTH 05-15 06:18
PROVIDERS: ADMIT Internal Medicine; ATTEND Internal Medicine
PROC: XW13325 Transfusion of Convalescent Plasma (Nonautologous) into Peripheral Vein, Percutaneous Approach, New Technology Group 5 (ICD-10-PCS; principal; 2020-05-16)
DX: U07.1 COVID-19 (principal); J96.01 Acute respiratory failure with hypoxia; N17.0 Acute kidney failure with tubular necrosis; E43 Unspecified severe protein-calorie malnutrition; J12.89 Other viral pneumonia; Z68.41 Body mass index [BMI] 40.0-44.9, adult; E66.01 Morbid (severe) obesity due to excess calories; E78.00 Pure hypercholesterolemia, unspecified; E78.5 Hyperlipidemia, unspecified; E86.0 Dehydration; K25.9 Gastric ulcer, unspecified as acute or chronic, without hemorrhage or perforation; Z82.49 Family history of ischemic heart disease and other diseases of the circulatory system; Z87.891 Personal history of nicotine dependence
CPT/HCPCS: 36415; 71045; 80048; 80053; 82550; 82728; 83615; 83735; 83880; 85007; 85025; 85379; 86850; 86900; 86901; 86927; 96361; 96365; 96375; 99285; J0456; J0696; J1100; J1650; J2405; J2920; J2930; J3490; J7030; J7512; G0378; P9017; U0003-CS